=== PATIENT | female | born 1995 | race Caucasian/White ===

== ENCOUNTER 2017-12-16 15:30 | Emergency (ER) | payer OTHER ==
[~2017-12-16] VITALS: Ht 162.6 cm; Wt 61.2 kg
[2017-12-16 15:38] VITALS: BP_SYST 124
[2017-12-16 16:21] LABS: BASOPHILS % (AUTO) 0.3 % (0.0-2.0); EOSINOPHILS # (AUTO) 0.1 K/uL (0.0-0.4); EOSINOPHILS % (AUTO) 1.5 % (0.0-4.0); HEMATOCRIT 30.9 % (36-48); HEMOGLOBIN 10.4 g/dL (12.0-16.0); LYMPHOCYTES # (AUTO) 1.8 K/uL (1.0-5.5); LYMPHOCYTES % (AUTO) 18.5 % (20.5-51.5); MEAN CORPUSCULAR HEMOGLOBIN 30 pg (27-31); MEAN CORPUSCULAR HGB CONC 34 % (32-36); MEAN CORPUSCULAR VOLUME 90 fL (79.0-98.0); MONOCYTES # (AUTO) 0.6 K/uL (0.0-1.0); MONOCYTES % (AUTO) 5.9 % (1.7-9.3); NEUTROPHILS # (AUTO) 7.4 K/uL (1.8-7.7); NEUTROPHILS % (AUTO) 73.8 % (40.0-70.0); PLATELET COUNT (AUTO) 251 K/uL (130-430); RED BLOOD CELL COUNT(AUTO) 3.43 MIL/uL (4.2-6.2); RED CELL DISTRIBUTION WIDTH 13.8 % (9.0-15.0); WHITE BLOOD COUNT (AUTO) 9.9 K/uL (4.8-10.8)
[2017-12-16 16:30] LABS: CALCIUM 8.1 mg/dL (8.4-11.0); CREATININE 0.43 mg/dL (0.55-1.30); POTASSIUM 3.3 mmol/L (3.5-5.1)
[2017-12-16 16:33] LABS: BILIRUBIN,URINE NEGATIVE (NEGATIVE); BLOOD, URINE NEGATIVE (NEGATIVE); CLARITY/URINE HAZY (CLEAR); COLOR,URINE YELLOW (YELLOW); GLUCOSE,URINE NEGATIVE (NEGATIVE); KETONES,URINE 3+ (NEGATIVE); LEUKOCYTE ESTERASE ,URINE 1+ (NEGATIVE); NITRITE, URINE NEGATIVE (NEGATIVE); PH,URINE 6.5 (5.0-8.0); PROTEIN URINE TRACE (NEGATIVE); UROBILINOGEN,URINE 0.2 (0.2-1.0)
[2017-12-16 16:36] LABS: TOTAL BILIRUBIN 0.2 mg/dL (0.0-1.0)
[2017-12-16 16:52] LABS: RBC,URINE 0-3 /HPF (0-3)
[2017-12-16 16:53] LABS: BACTERIA,URINE MODERATE /HPF (None Seen); MUCUS,URINE None Seen /LPF (None Seen)
[2017-12-16 17:15] VITALS: BP_SYST 120
== END 2017-12-16 17:15 | disposition home or self-care (01) ==
LOC: SED 15:30
DX: O26.892 Other specified pregnancy related conditions, second trimester (principal); J32.3 Chronic sphenoidal sinusitis; O23.42 Unspecified infection of urinary tract in pregnancy, second trimester; Z3A.17 17 weeks gestation of pregnancy; Z88.2 Allergy status to sulfonamides
CPT/HCPCS: 36415; 70450-TC; 76805-TC; 80053; 81000-TC; 81025; 85025; 87086; 99285

== ENCOUNTER 2018-02-03 13:15 | Observation (INO) | payer MEDICAID, OTHER ==
[~2018-02-03] VITALS: Ht 162.6 cm; Wt 62.6 kg
== END 2018-02-03 16:20 | disposition left against medical advice (07) ==
LOC: SPU 13:15
PROVIDERS: ADMIT Specialist; ATTEND Specialist
DX: O42.912 Preterm premature rupture of membranes, unspecified as to length of time between rupture and onset of labor, second trimester (principal); Z3A.19 19 weeks gestation of pregnancy
CPT/HCPCS: G0378

== ENCOUNTER 2019-05-03 15:54 | Emergency (ER) | payer MEDICAID ==
[~2019-05-03] VITALS: Ht 162.6 cm; Wt 54.4 kg
[2019-05-03 16:03] VITALS: BP_SYST 100
--- NOTE | 2019-05-03 16:03 | NUR ---
Patient to ER rom to gown for evaluation. Side rails up. Report given to SKYE Lopes.
[2019-05-03] MEDS ORDERED: NACL 0.9% 1,000 ML IV ONE (16:08)
[2019-05-03] MEDS ORDERED: MORPHINE 4 MG/ML INJ. SYRINGE IVP ONE (16:15)
[2019-05-03] MEDS ORDERED: ONDANSETRON HCL 4 MG/2 ML VIAL IVP ONE (16:15)
[2019-05-03 16:37] LABS: BASOPHILS % (AUTO) 0.3 % (0.0-2.0); EOSINOPHILS # (AUTO) 0.4 K/uL (0.0-0.4); EOSINOPHILS % (AUTO) 5.3 % (0.0-4.0); HEMATOCRIT 33.5 % (36-48); LYMPHOCYTES # (AUTO) 2.6 K/uL (1.0-5.5); LYMPHOCYTES % (AUTO) 35.6 % (20.5-51.5); MEAN CORPUSCULAR HEMOGLOBIN 26 pg (27-31); MEAN CORPUSCULAR HGB CONC 33 % (32-36); MEAN CORPUSCULAR VOLUME 79 fL (79.0-98.0); MONOCYTES # (AUTO) 0.5 K/uL (0.0-1.0); MONOCYTES % (AUTO) 7.2 % (1.7-9.3); NEUTROPHILS # (AUTO) 3.8 K/uL (1.8-7.7); NEUTROPHILS % (AUTO) 51.6 % (40.0-70.0); PLATELET COUNT (AUTO) 370 K/uL (130-430); RED BLOOD CELL COUNT(AUTO) 4.23 MIL/uL (4.2-6.2); RED CELL DISTRIBUTION WIDTH 19.8 % (9.0-15.0); WHITE BLOOD COUNT (AUTO) 7.4 K/uL (4.8-10.8)
--- NOTE | 2019-05-03 16:45 | NUR ---
MD Crowley at bedside.
--- NOTE | 2019-05-03 16:47 | NUR ---
RN assessed pt. pt is stable. she c/o right side abdominal pain. pt stated it has been hurting all day. pt is taken to CT scan.
[2019-05-03 16:51] LABS: CREATININE 0.58 mg/dL (0.55-1.30); POTASSIUM 3.4 mmol/L (3.5-5.1)
[2019-05-03 16:55] LABS: PROTHROMBIN TIME 10.4 SECS (9.5-12.5); TOTAL BILIRUBIN 0.3 mg/dL (0.0-1.0)
--- NOTE | 2019-05-03 17:00 | NUR ---
PT IS RESTING WELL AFTER HER PAIN MEDICATION. NO S/S OF DISTRESS
--- NOTE | 2019-05-03 18:12 | NUR ---
REPORTS SHOW PT IS CONSTIPATED AND THAT IS WHAT IS CAUSING HER PAIN. AWAITING FURTHER ORDERS
[2019-05-03 19:40] VITALS: BP_SYST 100
--- NOTE | 2019-05-03 19:40 | NUR ---
Patient given written and verbal discharge instructions and verbalizes understanding. ER DR CHELSEA PHIPPS discussed with patient the results and treatment provided. Patient in stable condition. ID arm band removed. IV catheter removed intact and dressing applied, no active bleeding. Rx of NAPROSYN AND STOOL SOFTENER given. Patient educated on pain management and to follow up with PMD. Pain Scale . Opportunity for questions provided and answered. Medication side effect fact sheet provided.
== END 2019-05-03 19:40 | disposition home or self-care (01) ==
LOC: SED 15:54
DX: K59.00 Constipation, unspecified (principal); N83.202 Unspecified ovarian cyst, left side; Z88.2 Allergy status to sulfonamides
CPT/HCPCS: 36415; 71045; 74176; 80053; 81025; 82150; 83605; 83690; 85025; 85610; 85730; 87040; 96374; 96375; 99284; J2270; J2405; J7030

== ENCOUNTER 2019-05-30 07:50 | Emergency (ER) | payer MEDICAID ==
[~2019-05-30] VITALS: Ht 162.6 cm; Wt 54.4 kg
[2019-05-30 07:50] VITALS: BP_SYST 109
[2019-05-30] MEDS ORDERED: NACL 0.9% 1,000 ML IV ONE (08:30)
[2019-05-30] MEDS ORDERED: ONDANSETRON HCL 4 MG/2 ML VIAL IVP ONE (08:30)
[2019-05-30] MEDS ORDERED: KETOROLAC TROMETHAMINE 30 MG VIAL IVP ONE (08:30)
[2019-05-30 08:45] LABS: BASOPHILS % (AUTO) 0.2 % (0.0-2.0); EOSINOPHILS # (AUTO) 0.4 K/uL (0.0-0.4); EOSINOPHILS % (AUTO) 6.3 % (0.0-4.0); HEMATOCRIT 33.1 % (36-48); HEMOGLOBIN 10.6 g/dL (12.0-16.0); LYMPHOCYTES # (AUTO) 1.4 K/uL (1.0-5.5); LYMPHOCYTES % (AUTO) 20.2 % (20.5-51.5); MEAN CORPUSCULAR HEMOGLOBIN 26 pg (27-31); MEAN CORPUSCULAR HGB CONC 32 % (32-36); MEAN CORPUSCULAR VOLUME 80 fL (79.0-98.0); MONOCYTES # (AUTO) 0.5 K/uL (0.0-1.0); MONOCYTES % (AUTO) 6.7 % (1.7-9.3); NEUTROPHILS # (AUTO) 4.7 K/uL (1.8-7.7); NEUTROPHILS % (AUTO) 66.6 % (40.0-70.0); PLATELET COUNT (AUTO) 269 K/uL (130-430); RED BLOOD CELL COUNT(AUTO) 4.13 MIL/uL (4.2-6.2); RED CELL DISTRIBUTION WIDTH 18.5 % (9.0-15.0); WHITE BLOOD COUNT (AUTO) 7.1 K/uL (4.8-10.8)
[2019-05-30 08:51] LABS: CALCIUM 8.3 mg/dL (8.4-11.0); CREATININE 0.43 mg/dL (0.55-1.30); POTASSIUM 3.7 mmol/L (3.5-5.1)
[2019-05-30 08:57] LABS: ALBUMIN 3.6 g/dL (3.4-4.8); TOTAL BILIRUBIN 0.2 mg/dL (0.0-1.0)
[2019-05-30 09:57] VITALS: BP_SYST 100
== END 2019-05-30 09:58 | disposition home or self-care (01) ==
LOC: SED 07:50
DX: R19.7 Diarrhea, unspecified (principal); R11.0 Nausea; Z88.2 Allergy status to sulfonamides
CPT/HCPCS: 36415; 74018; 80053; 85025; 96361; 96374; 96375; 99284; J1885; J2405; J7030

== ENCOUNTER 2019-07-05 17:01 | Emergency (ER) | payer MEDICAID ==
[~2019-07-05] VITALS: Ht 162.6 cm; Wt 63.5 kg
[2019-07-05 17:23] VITALS: BP_SYST 124
[2019-07-05] MEDS ORDERED: ACETAMINOPHEN 500 MG TABLET PO ONE (17:30)
[2019-07-05 17:50] VITALS: BP_SYST 124
== END 2019-07-05 17:50 | disposition home or self-care (01) ==
LOC: SED 17:01
DX: K04.7 Periapical abscess without sinus (principal); K02.9 Dental caries, unspecified; Z88.2 Allergy status to sulfonamides
CPT/HCPCS: 99283